=== PATIENT | female | born 1945 | race Two or more races ===

== ENCOUNTER 2022-10-26 17:04 | Inpatient (IN) | payer OTHER ==
[~2022-10-26] VITALS: Ht 157.5 cm; Wt 71.7 kg
[2022-10-26] MEDS ORDERED: LOSARTAN-HCTZ1 EAC1 (17:34)
[2022-10-26] MEDS ORDERED: SINGULAIR10 MG (17:35)
--- NOTE | 2022-10-26 17:49 | NUR ---
SE RECIBE PTE ALERTA Y ORIENTADA X3 ACOMPANADA DE FAMILIAR. PTE REFIERE VENIR POR DEBILIDAD, INFECCION DE ORINA, VOMITOS Y DIARREAS DESDE EL . SE MIDEN S/V A PTE. PTE CON BP MANUAL 80/50. SE REALIZA EKG A PTE Y SE PRESENTA A MD. PTE SE COLOCA EN K7 Y SE CONECTA A MONITOR CARDIACO CON OXIMETRIA.
--- NOTE | 2022-10-26 18:47 | NUR ---
PACIENTE EVALUADA POR DR YEPEZ ORDENA TRATAMIENTO MEDICO, PEARL ALVAREZ LE ORIETNA A PACIENTE SOBRE EL MISMO Y VERBALIZA ENTENDER, SE LE COLECTAN MUESTRAS DE LABORATORIO BAJO MEDIDAS ASEPTICAS. SE CANALIZA, SE LE HACE ENTREGA A PACIENTE DE ENVASE PARA COLECTA DE U/A Y U/C.
== END 2022-11-01 16:38 | disposition home or self-care (01) | DRG 871 ==
LOC: ER 17:04 → MEDJ 22:44 → MEDI 10-29 10:42
PROVIDERS: General Practice; Internal Medicine Infectious Disease; ADMIT Specialist; ATTEND Specialist
PROC: BW28ZZZ Computerized Tomography (CT Scan) of Head (ICD-10-PCS; principal; 2022-10-26)
PROC: BW2FZZZ Computerized Tomography (CT Scan) of Neck (ICD-10-PCS; 2022-10-26)
PROC: BW21ZZZ Computerized Tomography (CT Scan) of Abdomen and Pelvis (ICD-10-PCS; 2022-10-26)
PROC: 4A12X4Z Monitoring of Cardiac Electrical Activity, External Approach (ICD-10-PCS; 2022-10-27)
PROC: B24BZZZ Ultrasonography of Heart with Aorta (ICD-10-PCS; 2022-10-28)
DX: A41.9 Sepsis, unspecified organism (principal); I21.A1 Myocardial infarction type 2; N17.9 Acute kidney failure, unspecified; N39.0 Urinary tract infection, site not specified; N12 Tubulo-interstitial nephritis, not specified as acute or chronic; I50.20 Unspecified systolic (congestive) heart failure; E86.0 Dehydration; E87.6 Hypokalemia; J44.9 Chronic obstructive pulmonary disease, unspecified; B96.4 Proteus (mirabilis) (morganii) as the cause of diseases classified elsewhere; I11.0 Hypertensive heart disease with heart failure

== ENCOUNTER 2023-04-22 07:32 | Outpatient (CLI) | payer OTHER ==
[~2023-04-22 07:32] MED LIST: LOSARTAN-HCTZ1 EAC1; SINGULAIR10 MG
== END 2023-04-22 07:41 | disposition home or self-care (01) ==
LOC: TOM 07:32
PROVIDERS: ATTEND Internal Medicine Pulmonary Disease
DX: I77.9 Disorder of arteries and arterioles, unspecified (principal); I10 Essential (primary) hypertension; J43.2 Centrilobular emphysema; R06.02 Shortness of breath; Z87.891 Personal history of nicotine dependence
CPT/HCPCS: 70492; 71250; Q9965

== ENCOUNTER → 2023-04-24 | Outpatient (CLI) | payer OTHER | END | disposition home or self-care (01) | LOC: RAD 11:38 | DX: C50.011 Malignant neoplasm of nipple and areola, right female breast (principal); Z12.31 Encounter for screening mammogram for malignant neoplasm of breast ==

== ENCOUNTER 2023-05-06 07:59 | Outpatient (CLI) | payer OTHER | END 2023-05-06 08:00 | disposition home or self-care (01) | LOC: NUCLEAR 07:59 | PROVIDERS: ATTEND Internal Medicine | DX: R06.09 Other forms of dyspnea (principal) | CPT/HCPCS: 78452; 93017; A9500 ==

== ENCOUNTER → 2023-05-07 14:01 | Outpatient (CLI) | payer OTHER | END | disposition home or self-care (01) | LOC: NUCLEAR 13:45 | PROVIDERS: ATTEND Internal Medicine | DX: M81.0 Age-related osteoporosis without current pathological fracture (principal) ==